=== PATIENT | female | born 1950 | race Asian ===

== ENCOUNTER 2018-03-30 07:22 | Outpatient (CLI) | payer MEDICARE, BC, SELFPAY ==
[2018-03-30 09:05] LABS: Anion Gap 7.5 mmol/L (3-11); BUN 13 mg/dL (7-18); CO2 30.5 mmol/L (21.0-32.0); CREATININE 0.47 mg/dL (0.55-1.02); Calcium 8.5 mg/dL (8.5-10.1); Chloride 104 mmol/L (98-107); Cholesterol 199 mg/dL (50-200); Glucose 124 mg/dL (70-100); HDL Cholesterol 66 mg/dL (40-60); LDL CHOLESTEROL 112 mg/dL (<100); Potassium 4.1 mmol/L (3.5-5.1); Sodium 142 mmol/L (136-145); Triglyceride 202 mg/dL (30-150)
== END 2018-03-30 07:42 ==
PROVIDERS: PCP Internal Medicine; Visit Provider Internal Medicine
DX: I10 Essential (primary) hypertension (principal)
CPT/HCPCS: 36415; 80048; 80061; 83721

== ENCOUNTER 2018-04-10 01:25 | Outpatient (CLI) | payer MEDICARE, BC, SELFPAY ==
--- NOTE | 2018-04-10 10:41 | DI.MAMMO_ITS ---
SYMPTOM/DIAGNOSIS: SCREENING, Z12.31 MAMMOGRAMS: Mammograms were interpreted according to the usual protocol including computer analysis with CAD system, tomosynthesis and C view imaging. The breasts are heterogeneously dense. No dominant mass or clumped microcalcification is identified in either breast. The current examination is compared with previous examinations including 03/2017 and there has been no gross interval change in appearance in comparison with the previous studies. CONCLUSION: No specific evidence of malignancy at this time. Routine screening examinations are suggested at yearly intervals in this age group according to the ACS/ACR guidelines. Category 1. Breast density, category C. MQSA ASSESSMENT OF FINDINGS: Negative. Category 1. Patient will receive a letter notifying them of these results. Bi-RADS category C. The breasts are heterogeneously dense, which may obscure small masses.
== END 2018-04-10 01:45 ==
PROVIDERS: PCP Internal Medicine; Visit Provider Internal Medicine
DX: Z12.31 Encounter for screening mammogram for malignant neoplasm of breast (principal)
CPT/HCPCS: 77063; 77067

== ENCOUNTER 2018-09-18 01:59 | Outpatient (CLI) | payer MEDICARE, BC, SELFPAY ==
[2018-09-18 09:23] LABS: Cholesterol 189 mg/dL (50-200); Glucose 128 mg/dL (70-100); HDL Cholesterol 69 mg/dL (40-60); LDL CHOLESTEROL 104 mg/dL (<100); Triglyceride 92 mg/dL (30-150)
== END 2018-09-18 02:19 ==
PROVIDERS: PCP Internal Medicine; Visit Provider Internal Medicine
DX: E78.00 Pure hypercholesterolemia, unspecified (principal); R73.03 Prediabetes
CPT/HCPCS: 36415; 80061; 82947; 83721

== ENCOUNTER 2019-04-05 08:03 | Outpatient (CLI) | payer MEDICARE, BC, SELFPAY ==
[2019-04-05 09:54] LABS: Anion Gap 8.8 mmol/L (3-11); BUN 15 mg/dL (7-18); CO2 31.2 mmol/L (21.0-32.0); CREATININE 0.54 mg/dL (0.55-1.02); Calcium 9.3 mg/dL (8.5-10.1); Calculated LDL 112 mg/dL; Chloride 104 mmol/L (98-107); Cholesterol 201 mg/dL (50-200); Glucose 132 mg/dL (70-100); HDL Cholesterol 67 mg/dL (40-60); Potassium 3.9 mmol/L (3.5-5.1); Sodium 144 mmol/L (136-145); Triglyceride 111 mg/dL (30-150)
== END 2019-04-05 08:23 ==
PROVIDERS: PCP Internal Medicine; Visit Provider Internal Medicine
DX: I10 Essential (primary) hypertension (principal); E78.00 Pure hypercholesterolemia, unspecified
CPT/HCPCS: 36415; 80048; 80061

== ENCOUNTER 2020-06-14 00:59 | Outpatient (CLI) | payer MEDICARE, BC, SELFPAY ==
--- NOTE | 2020-06-14 08:00 | DI.MAMMO_ITS ---
EXAM: MG MAMMO SCREENING CLINICAL HISTORY: screening,z12.39 TECHNIQUE: Bilateral full field digital CC and MLO mammographic images were obtained with 3D tomosyn thesis and utilizing computer aided detection (CAD). COMPARISON: Available for comparison. FINDINGS: Masses/Architectural Distortion: None seen. Microcalcifications: No suspicious pleomorphic-type are seen. Skin Thickening/Nipple Retraction: None. IMPRESSION: 1. No significant interval change with no specific features of malignancy noted. 2. Unless there is more urgent need, screening mammography is recommended, as per [employer] guidelines. BI-RADS Category 1 - Negative Breast Density - Category C - Heterogeneously dense Breast density category C or D implies that the patient has dense breast tissue. Dense breast tissue is very common and is not abnormal but dense breast tissue can make it harder to find cancer on a ma mmogram. Also, dense breast tissue may increase their breast cancer risk. This information about the result of the mammogram report was provided to the patient to raise their awareness. Use this report when you speak with the patient about their risks for breast cancer, which includes their family hist ory. At that time, you may recommend for more screening tests (Ultrasound or MRI) as they might be us eful based on their risk. A negative radiographic report should not delay biopsy if a dominant or clinically suspicious mass is present. Up to ten percent of cancers are not identified on mammography. A negative report may reinforce clinical impression. Adenosis and dense breasts may obscure an underlying neoplasm. False positive reports average 6 to 10%. Patient will receive a letter notifying them of these results.
== END 2020-06-14 01:19 ==
PROVIDERS: PCP Internal Medicine; Visit Provider Internal Medicine
DX: Z12.31 Encounter for screening mammogram for malignant neoplasm of breast (principal)
CPT/HCPCS: 77063; 77067

== ENCOUNTER 2020-09-28 01:50 | Outpatient (CLI) | payer MEDICARE, BC, SELFPAY ==
[2020-09-29 16:16] LABS: COVID-19 RT-PCR UVMMC Result Negative (Negative)
== END 2020-09-28 01:51 | disposition home or self-care (01) ==
LOC: LBO 01:50
PROVIDERS: PCP Internal Medicine; Visit Provider Internal Medicine
DX: Z20.822 Contact with and (suspected) exposure to COVID-19 (principal)
CPT/HCPCS: U0003; U0005

== ENCOUNTER 2020-11-09 03:12 | Outpatient (CLI) | payer MEDICARE, BC, SELFPAY ==
[2020-11-09 15:56] LABS: COMMENT (LAB VIEW ONLY) 81.82 mg/dL; Microalb ug/mg Crea 88.2 ug/mg Cr
[2020-11-09 16:41] LABS: Anion Gap 10.3 mmol/L (3-11); BUN 15 mg/dL (7-18); CO2 29.7 mmol/L (21.0-32.0); CREATININE 0.6 mg/dL (0.55-1.02); Calcium 9.6 mg/dL (8.5-10.1); Calculated LDL 80 mg/dL (<100); Chloride 102 mmol/L (98-107); Cholesterol 201 mg/dL (<200); Glucose 167 mg/dL (74-106); HDL Cholesterol 68 mg/dL (40-60); Potassium 3.5 mmol/L (3.5-5.1); Sodium 142 mmol/L (136-145); Triglyceride 266 mg/dL (<150)
== END 2020-11-09 03:13 | disposition home or self-care (01) ==
PROVIDERS: PCP Internal Medicine; Visit Provider Internal Medicine
DX: I10 Essential (primary) hypertension (principal); E78.00 Pure hypercholesterolemia, unspecified; E11.9 Type 2 diabetes mellitus without complications
CPT/HCPCS: 36415; 80048; 80061; 82043; 82570

== ENCOUNTER 2022-06-18 01:25 | Outpatient (CLI) | payer BC, MEDICARE, SELFPAY ==
--- NOTE | 2022-06-18 07:45 | DI.MAMMO_ITS ---
Exam(s) MAMMO SCREENING EXAM: MAMMO SCREENING CLINICAL HISTORY: screening,z12.39. TECHNIQUE: Bilateral full field digital CC and MLO mammographic images were obtained with 3D tomosyn thesis and utilizing computer aided detection (CAD). COMPARISON: Prior mammograms were reviewed. FINDINGS: The fibroglandular tissue pattern is again noted be moderately dense, this somewhat decreasing the se nsitivity mammogram for finding hidden underlying lesions. There are multiple bilateral CAD markings. In the right breast on the CC view there is an asymmetric density-possible nodule located medial of c enter, approximately 5 cm in from the nipple and measuring approximately 7 x 5 millimeters. Spot com pression view and ultrasound of this finding recommended. There are multiple benign-appearing micro and macro calcifications in both breasts but there are no n ew malignant-appearing microcalcification groups evident. There is no significant architectural distortion nor skin thickening-retraction. IMPRESSION: Dense bilateral fibroglandular tissue. Asymmetric density-possible nodule in the medial right breast . Spot compression view and ultrasound recommended. BI-RADS Category 0 - Assessment Incomplete: Need additional imaging evaluation Breast Density - Category C - Heterogeneously dense Breast density Category C or D implies that the patient has dense breast tissue. Dense breast tissue can make it harder to find cancer on a mammogram. Dense breast tissue is also associated with an incr eased risk of breast cancer. This information about the result of the mammogram report was provided to the patient to raise their awareness. Use this report when you speak with the patient about their risks for breast cancer, which includes their family history. At that time, you may recommend additional screening tests (Ultrasoun d or MRI) as these tests may add significant information. A negative radiographic report should not delay biopsy if a dominant or clinically suspicious mass is present. Up to ten percent of cancers are not identified on mammography. A negative report may reinforce clinical impression. Adenosis and dense breasts may obscure an underlying neoplasm. False positive reports average 6 to 10%. Patient will receive a letter notifying them of these results.
== END 2022-06-18 01:45 ==
PROVIDERS: PCP Internal Medicine; Visit Provider Internal Medicine
DX: Z12.31 Encounter for screening mammogram for malignant neoplasm of breast (principal); R92.8 Other abnormal and inconclusive findings on diagnostic imaging of breast
CPT/HCPCS: 77063; 77067

== ENCOUNTER 2022-06-27 01:03 | Outpatient (CLI) | payer BC, MEDICARE, SELFPAY ==
--- NOTE | 2022-06-27 | DI.MAMMO_ITS ---
Exam(s) MG MAMMO SCREEN CALL BACK UNI US BREAST RT COMPLETE EXAM: MAMMO SCREEN CALL BACK UNI --RIGHT AND COMPLETE RIGHT BREAST ULTRASOUND CLINICAL HISTORY: F/U MAMMO, R92.8, ASYMMETRIC DENSITY, ? NODULE MEDIAL OF CENTER. TECHNIQUE: Unilateral RIGHT BREAST spot mammographic image obtained with 3D tomosynthesisand lexisizi ng computer aided detection (CAD). . Complete RIGHT breast Ultrasound was also performed, including all 4 quadrants, the retroareolar archana on, and the ipsilateral axilla. COMPARISON: Prior mammograms were reviewed. This additional imaging was performed due to findings described on the recent screening mammogram of 06/18/2022. FINDINGS: DIAGNOSTIC RIGHT BREAST MAMMOGRAM: Additional mammographic views performed todayrender this area less concerning. Proceeded with ultrasound. COMPLETE RIGHT BREAST ULTRASOUND: Ultrasound performed today reveals no evidence of solid or significant cystic lesions in all 4 quadra nts. Also no focal ultrasound findings in retroareolar region.. Scanning of the ipsilateral axilla reveals no significant adenopathy. IMPRESSION: 1. No radiographic evidence of malignancy in the right breast. 2. Negative complete right breast ultrasound Appropriate follow-up is to keep this patient on a yearly mammogram schedule, with earlier imaging i f a self detected breast change is noted.. The patient was informed of these findings and recommendations prior to leaving the department today. BI-RADS Category 2 - Benign Findings Breast Density - Category C - Heterogeneously dense Breast density Category C or D implies that the patient has dense breast tissue. Dense breast tissue can make it harder to find cancer on a mammogram. Dense breast tissue is also associated with an incr eased risk of breast cancer. This information about the result of the mammogram report was provided to the patient to raise their awareness. Use this report when you speak with the patient about their risks for breast cancer, which includes their family history. At that time, you may recommend additional screening tests (Ultrasoun d or MRI) as these tests may add significant information. A negative radiographic report should not delay biopsy if a dominant or clinically suspicious mass is present. Up to ten percent of cancers are not identified on mammography. A negative report may reinforce clinical impression. Adenosis and dense breasts may obscure an underlying neoplasm. False positive reports average 6 to 10%. Patient will receive a letter notifying them of these results.
== END 2022-06-27 01:23 ==
PROVIDERS: PCP Internal Medicine; Visit Provider Internal Medicine
DX: R92.8 Other abnormal and inconclusive findings on diagnostic imaging of breast (principal); Z12.31 Encounter for screening mammogram for malignant neoplasm of breast
CPT/HCPCS: 76642; 77063; 77067

== ENCOUNTER 2022-11-12 02:43 | Outpatient (CLI) | payer BC, MEDICARE, SELFPAY ==
[2022-11-12 09:55] LABS: Anion Gap 7.4 mmol/L (3-11); BUN 10 mg/dL (7-18); CO2 31.6 mmol/L (21.0-32.0); CREATININE 0.5 mg/dL (0.55-1.02); Calcium 9.3 mg/dL (8.5-10.1); Calculated LDL 169 mg/dL (<100); Chloride 101 mmol/L (98-107); Cholesterol 302 mg/dL (<200); Estimated GFR 98.97 (mL/min/1.73m2); Glucose 133 mg/dL (74-106); HDL Cholesterol 65 mg/dL (40-60); Potassium 3.7 mmol/L (3.5-5.1); Sodium 140 mmol/L (136-145); Triglyceride 340 mg/dL (<150)
== END 2022-11-12 02:44 | disposition home or self-care (01) ==
LOC: LBO 02:45
PROVIDERS: Internal Medicine; PCP Student in an Organized Health Care Education/Training Program; Visit Provider Student in an Organized Health Care Education/Training Program
DX: I10 Essential (primary) hypertension (principal); E78.00 Pure hypercholesterolemia, unspecified
CPT/HCPCS: 36415; 80048; 80061

== ENCOUNTER 2022-11-27 18:00 | Emergency (ER) | payer BC, MEDICARE, SELFPAY ==
[2022-11-27 18:08] VITALS: BP 202/56; PULSE 82; RESP 16; TEMP 36.8; O2SAT 95
--- NOTE | 2022-11-27 18:15 | DI.RAD_ITS ---
Exam(s) XR PORTABLE CHEST AP EXAM: XR PORTABLE CHEST AP CLINICAL HISTORY: cough TECHNIQUE: 2D digital imaging was performed of the chest. One image was obtained. An AP view was ob tained. COMPARISON: CR CHEST ONE VIEW IN RAD DEPT from 11/21/2011 FINDINGS: MEDIASTINUM: Normal. HEART: Mild cardiomegaly. PULMONARY VASCULATURE: Normal. LUNGS: Clear. PLEURAL SPACE: No pleural effusion or pneumothorax. BONE:Within normal limits for the patient's age. OTHER FINDINGS:Normal. IMPRESSION: No acute pulmonary findings. DATA REPOSITORY: RADIATION DOSE DELIVERED:
--- NOTE | 2022-11-27 18:24 | W.ED.GENAD ---
Discharge Plan Disposition Patient Disposition: Home Condition: Stable Discharge Details Clinical Impression: Cough, Elevated LFTs Primary Care Provider: Karin Ohara ED Provider: Michael Aguilar Home Meds and New Rx's Prescriptions: New prednisone 20 mg tablet 60 mg PO DAILY 4 Days Qty: 12 0RF doxycycline hyclate 100 mg tablet 100 mg PO BID Qty: 14 0RF Continued mometasone [Nasonex] 50 mcg/actuation spray,non-aerosol 2 spray NS DAILY Qty: 1 2RF aspirin 81 mg tablet,delayed release (DR/EC) 81 mg PO DAILY propranolol 10 mg tablet 10 mg PO TID PRN PRN (Reason: anxiety) Qty: 30 0RF Hold Instructions: not tried Rx Instructions: take as needed for stress Centrum Silver 400-250 mcg tablet,chewable 1 tab PO DAILY docusate sodium [Cabrales' Liqui-Gels] 100 mg capsule 100 mg PO DAILY Patient Comments: Pt states she takes caplets, almost every night.HE ropinirole 0.25 mg tablet 0.25 mg PO QHS Qty: 30 1RF Rx Instructions: administer 1-3 hours before bedtime magnesium oxide 400 mg magnesium tablet 400 mg PO QHS Qty: 90 3RF Rx Instructions: Trial supplement for mm, sleep.. docusate sodium [Colace] 100 MG capsule 100 mg PO DAILY loratadine 10 MG tablet 10 mg PO DAILY Qty: 30 ascorbic acid (vitamin C) [Vitamin C] 500 MG tablet 500 mg PO DAILY atorvastatin 80 mg tablet 80 mg PO DAILY Qty: 90 3RF Hold Instructions: trial rosuvastatin 08/2022 hydrochlorothiazide 12.5 mg capsule 12.5 mg PO DAILY Qty: 90 3RF Hold Instructions: Home Medication placed on hold at Doctor's office rosuvastatin 10 mg tablet 10 mg PO DAILY Qty: 90 3RF Hold Instructions: wt gain and mm aches 10/2022 metoprolol succinate 100 mg tablet extended release 24 hr 100 mg PO BID Qty: 180 3RF Rx Instructions: to lower blood pressure amlodipine 5 mg tablet 5 mg PO DAILY Qty: 90 3RF Discharge Instructions Instructions: Acute Cough (ED) Additional Instructions: Your xray did not show concerning findings, your blood work showed a mild elevation in your liver function tests otherwise no concerning findings follow up with your primary care provider within 1-2 weeks especially if symptoms continue if you feel more ill,l have worsening shortness of breath or severe pain return to the emergency department Stand Alone Forms: Work Release Medical Decision Making 72 yo female who has a hx of htn, dm, chronic smoker, who comes in with cc of cough since Last Friday. She states she feels like she has phlegm but can't get it up. She denies fevers or chills, states when she is coughing she feels shortness of breath. Denies chest pain or pressure. She arrives stable though hypertensive, she does state her bp is high when she is in a medical facility. She has diffuse wheezing in all lung resendez, no murmurs, no jvd, no calf tenderness. She is speaking in full sentences. Given her smoking history and lung exam findings suspect she has undiagnosed copd, will proceed with duoneb and prednisone, fluvid, xray, cbc and cmp and reassess. No evidence of dvt on exam and no pleuritic chest pain and lung exam findings are consistent with copd and doubt pe and she has no chest pain and symptoms of cough are more consistent with infectious etiology so doubt acs. labs show mild elevation in lfts and she denies abdominal pain and has no tenderness on exam so do not feel acute imaging indicated of liver/gallbladder, will send hepatitis panel, xray without acute findings. She feels better, lung auscultation improved, mild apical wheezing bilaterally now. Suspect she has undiagnosed copd, will treat with prednisone and doxy and provide inhaler. She is stable for d/c and return precautions given Differential Diagnosis Differential Diagnosis: pneumonia, covid, copd Medical Records Medical records reviewed: Yes I reviewed the patient's medical records. Imaging Data Radiologic Study: Attestation: I personally reviewed and interpreted this imaging study as follows: Imaging: X-Ray Radiologist's impression: PROCEDURE INFORMATION: Exam: XR Chest Exam date and time: 11/27/2022 6:45 PM Age: 72 years old Clinical indication: Cough TECHNIQUE: Imaging protocol: Radiologic exam of the chest. Views: 1 view. COMPARISON: No relevant prior studies available. FINDINGS: Lungs: Unremarkable. No consolidation. Pleural spaces: Unremarkable. No pleural effusion. No pneumothorax. Heart/Mediastinum: Cardiac silhouette is mildly enlarged. Bones/joints: Significant degenerative disc changes noted throughout the thoracic spine. Bones are otherwise unremarkable. IMPRESSION: Mild cardiomegaly and chronic osseous changes. No active infiltrate Lab Data Lab results reviewed: Yes I reviewed the patient's lab results. HPI General Mode of arrival: ambulatory. Date/Time Provider Initiated Documentation: 11/27/22 18:02. Limitations to Documentation: no limitations. Information obtained by: patient. History of Present Illness 72 year old F presents to the emergency department with the chief complaint of cough, described as moderate, Patient started experiencing this day(s) (5) and it has been constant. No relieving factors improve symptom(s), No exacerbating factors reported . Patient notes denies chest pain and fever/chills. Patient did receive the following treatments prior to arrival, none Related Data Home Medications Medication Instructions Recorded Confirmed docusate sodium 100 mg capsule 100 mg PO DAILY 08/28/12 11/27/22 (Colace) loratadine 10 mg tablet 10 mg PO DAILY #30 tab-caps 01/19/13 11/27/22 ascorbic acid (vitamin C) 500 mg 500 mg PO DAILY 05/04/14 11/27/22 tablet (Vitamin C) mometasone 50 mcg/actuation nasal 2 spray NS DAILY #1 inh 04/13/19 11/27/22 spray (Nasonex) aspirin 81 mg tablet,delayed 81 mg PO DAILY 11/16/19 11/27/22 release atorvastatin 80 mg tablet 80 mg PO DAILY #90 tabs 11/15/21 11/27/22 hydrochlorothiazide 12.5 mg capsule 12.5 mg PO DAILY #90 tab-caps 11/15/21 11/27/22 propranolol 10 mg tablet 10 mg PO TID PRN PRN anxiety #30 12/18/21 11/27/22 tabs docusate sodium 100 mg capsule 100 mg PO DAILY 08/16/22 11/27/22 (Cabrales' Liqui-Gels) multivit with min-folic 1 tab PO DAILY 08/16/22 11/27/22 acid-lutein 400 mcg-250 mcg chewable tablet (Centrum Silver) ropinirole 0.25 mg tablet 0.25 mg PO QHS #30 tabs 08/16/22 11/27/22 magnesium oxide 400 mg PO QHS #90 tabs 08/27/22 11/27/22 rosuvastatin 10 mg tablet 10 mg PO DAILY #90 tabs 10/30/22 11/27/22 metoprolol succinate 100 mg 100 mg PO BID #180 tabs 11/23/22 11/27/22 tablet,extended release 24 hr amlodipine 5 mg tablet 5 mg PO DAILY #90 tabs 11/26/22 11/27/22 doxycycline hyclate 100 mg tablet 100 mg PO BID #14 tabs 11/27/22 prednisone 20 mg tablet 60 mg PO DAILY 4 days #12 tabs 11/27/22 Previous Rx's Medication Instructions Recorded mometasone 50 mcg/actuation nasal 2 spray NS DAILY #1 inh 04/13/19 spray (Nasonex) atorvastatin 80 mg tablet 80 mg PO DAILY #90 tabs 11/15/21 hydrochlorothiazide 12.5 mg capsule 12.5 mg PO DAILY #90 tab-caps 11/15/21 propranolol 10 mg tablet 10 mg PO TID PRN PRN anxiety #30 12/18/21 tabs ropinirole 0.25 mg tablet 0.25 mg PO QHS #30 tabs 08/16/22 magnesium oxide 400 mg PO QHS #90 tabs 08/27/22 rosuvastatin 10 mg tablet 10 mg PO DAILY #90 tabs 10/30/22 metoprolol succinate 100 mg 100 mg PO BID #180 tabs 11/23/22 tablet,extended release 24 hr amlodipine 5 mg tablet 5 mg PO DAILY #90 tabs 11/26/22 doxycycline hyclate 100 mg tablet 100 mg PO BID #14 tabs 11/27/22 prednisone 20 mg tablet 60 mg PO DAILY 4 days #12 tabs 11/27/22 Allergies Allergy/AdvReac Type Severity Reaction Status Date / Time Fish Containing Products Allergy Severe Hives Verified 08/27/22 10:43 shellfish derived Allergy Severe Hives Verified 08/27/22 10:43 acetaminophen [From Tylenol] Allergy Intermediate Rash Verified 08/27/22 10:43 ibuprofen [From Advil] Allergy Intermediate Rash Verified 08/27/22 10:43 latex Allergy Intermediate Rash Verified 08/27/22 10:43 Penicillins Allergy Unknown rash Verified 08/27/22 10:43 lisinopril AdvReac Mild cough Verified 08/27/22 10:43 aspirin AdvReac Unknown RASH FROM Verified 08/27/22 10:43 325 MG, 81 MG OK detergent Allergy Severe Skin Rash Uncoded 08/27/22 10:43 fabric softeners Allergy Severe Skin Rash Uncoded 08/27/22 10:43 enviromental Allergy Intermediate Skin Rash, Uncoded 08/27/22 10:43 watery eyes, runny nose glue from [employer] AdvReac Rash Uncoded 08/27/22 10:43 General Stated Complaint: GenMedical ANDREY: 3 Review of Systems All systems reviewed & are unremarkable except as noted in HPI and below Constitutional Constitutional: Denies chills and Denies fever(s) Cardiovascular Cardiovascular: Denies chest pain and Reports dyspnea Respiratory Respiratory: Reports cough and Reports dyspnea Gastrointestinal Gastrointestinal: Denies abdominal pain, Denies nausea and Denies vomiting Musculoskeletal Musculoskeletal: Denies joint swelling PFSH All Active Problems Cough (Acute) Elevated LFTs (Acute) Dermatitis (Acute) Skin tags, multiple acquired (Acute) Leg cramping (Acute) Foot pain (Acute) Bunion (Acute) Stress due to illness of family member (Chronic) Anxiety (Chronic) Type 2 diabetes mellitus without complication (Acute) Pure hypercholesterolemia (Acute 12/09/12) Osteopenia (Acute 05/24/14) FEMORAL NECK T score -2.4, total T score -1.4 Essential hypertension (Chronic 01/19/13) Cigarette smoker one half pack a day or less (Acute 09/06/15) Medical History (Updated 11/27/22 @ 19:41 by Michael Aguilar MD) Hypercholesterolemia Hypertension Osteopenia Prediabetes Seasonal allergies Uterine leiomyoma (05/10/14) Surgical History Abdominal hysterectomy Oophrectomy, Both 07/2014 Family History Mother Essential hypertension Brother Essential hypertension Heart disease Myocardial infarction Diabetes Sister Essential hypertension Heart disease Myocardial infarction Diabetes Sister Diabetes Social History (Updated 08/27/22 @ 10:44 by Keren Dowell RN) Smoking/Tobacco Use Status: Current every day Quit status: considering quitting Smoking risk assessment performed?: Yes (Pt states she smokes a couple a day Pack per week, and only when alone.) Alcohol Intake: current Alcohol Intake frequency: holidays/special occasions only Alcohol type: wine Drug use: Never Household members: spouse Number of Children: 0 Communication Needs: Corrective Lenses current occupation: works at [employer] and [employer] Pets and animals: Yes Current gender identity: female What is your relationship status?: Panel score (0-1 are the most socially isolated patients): 1 What type of physical activity do you participate in: other Details: active with Jobs Seatbelt use: always 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 Do you feel safe at home: Yes Do you feel safe in your relationship?: Yes Exam Const General: no acute distress Orientation: alert HENMT Head: normal to inspection Ears: external ears normal General nose exam: external nose normal Mouth: moist mucous membranes Eyes General: appearance normal, both eyes and all related structures Neck Neck: normal visual inspection Resp Effort & Inspection: normal respiratory effort, able to speak in complete sentences, audible wheezes and cough Cardio Rate: regular rate Heart Sounds: no murmurs Skin General skin exam: no rashes or lesions noted Neuro General: patient alert and patient oriented x3 Extrem General: normal to inspection Psych Mental Status: mental status grossly normal Course Vital Signs Vital signs: Vital Signs Temperature 36.8 C 11/27/22 18:08 Pulse 82 11/27/22 18:08 Respiratory Rate 16 11/27/22 18:08 Blood Pressure 202/56 H 11/27/22 18:08 Pulse Oximetry 95 11/27/22 18:08 Temperature 36.8 C 11/27/22 18:08 Temperature Source Temporal Artery Scan 11/27/22 18:08 Pulse 82 11/27/22 18:08 Respiratory Rate 16 11/27/22 18:08 Blood Pressure 202/56 H 11/27/22 18:08 Blood Pressure Position Sitting 11/27/22 18:08 Pulse Oximetry 95 11/27/22 18:08 Oxygen Delivery Method Room Air 11/27/22 18:08 Oxygen Flow Rate 0 11/27/22 18:08 Pain Level 0 11/27/22 18:08
[2022-11-27] MEDS: Albuterol/Ipratropium 3 ML UPD VIAL UPD (18:42)
[2022-11-27] MEDS: predniSONE 20 MG TAB 60 MG PO (18:42)
[2022-11-27 18:43] VITALS: RESP 18
[2022-11-27 18:47] LABS: Abs Immature Grans 0.03 10^3/uL (0.0-0.06); Absolute Basophil Count 0.04 10^3/uL (0.0-0.2); Absolute Eosinophil Count 0.12 10^3/uL (0.0-0.7); Absolute Lymphocyte Count 1.76 10^3/uL (1.2-3.4); Absolute Monocyte Count 0.42 10^3/uL (0.1-0.8); Absolute Neutrophil Count 4.54 10^3/uL (1.2-6.7); Basophils % 0.6; Eosinophils % 1.7; HCT 43.1 % (36.0-46.0); HGB 14.9 g/dL (11.2-15.7); Immature Grans % 0.4; Lymphocytes % 25.5; MCHC 34.6 % (32.0-36.0); MCV 93 fL (80-95); MPV 10.4 fL (8.0-11.0); Monocytes % 6.1; Neutrophils % 65.7; Platelet Count 263 10^3/uL (130-400); RBC 4.65 10^6/uL (3.93-5.22); RDW 10.9 % (11.7-14.6); RDW-SD 36.7 fL; WBC 6.91 10^3/uL (4.4-10.8)
[2022-11-27 18:55] VITALS: BP 165/51
--- NOTE | 2022-11-27 19:04 | DI.VRAD_ITS ---
PROCEDURE INFORMATION: Exam: XR Chest Exam date and time: 11/27/2022 6:45 PM Age: 72 years old Clinical indication: Cough TECHNIQUE: Imaging protocol: Radiologic exam of the chest. Views: 1 view. COMPARISON: No relevant prior studies available. FINDINGS: Lungs: Unremarkable. No consolidation. Pleural spaces: Unremarkable. No pleural effusion. No pneumothorax. Heart/Mediastinum: Cardiac silhouette is mildly enlarged. Bones/joints: Significant degenerative disc changes noted throughout the thoracic spine. Bones are otherwise unremarkable. IMPRESSION: Mild cardiomegaly and chronic osseous changes. No active infiltrate Dictated and Authenticated by: Celso Loya MD. Ordering:TR Rodriguez MD
[2022-11-27 19:05] LABS: ALT 104 U/L (14-59); AST 69 U/L (15-37); Albumin 3.6 g/dL (3.4-5.0); Alkaline Phosphatase 161 U/L (46-116); Anion Gap 7.7 mmol/L (3-11); BUN 18 mg/dL (7-18); Bilirubin, Total 0.8 mg/dL (0.2-1.0); CO2 26.3 mmol/L (21.0-32.0); CREATININE 0.8 mg/dL (0.55-1.02); Calcium 9.6 mg/dL (8.5-10.1); Chloride 100 mmol/L (98-107); Estimated GFR 77.75 (mL/min/1.73m2); Glucose 262 mg/dL (74-106); Potassium 3.4 mmol/L (3.5-5.1); Sodium 134 mmol/L (136-145); Total Protein 8.6 g/dL (6.4-8.2)
[2022-11-27 19:20] LABS: Procalcitonin < 0.1 ng/mL
[2022-11-27 19:22] LABS: COVID-19 PCR Negative (Negative); Influenza A PCR Negative (Negative); Influenza B PCR Negative (Negative); RSV PCR Negative (Negative)
[2022-11-27 19:23] LABS: Source Nasopharynx
[2022-11-27] MEDS: Albuterol HFA 8 GM 60 PUFF INH IH (19:54)
[2022-11-27] MEDS: Doxycycline Hyclate 100 MG CAP PO (19:54)
[2022-11-27] MEDS: Inhaler, Assist Device 1 EACH MC (19:55)
[2022-11-29 12:30] LABS: Hepatitis A Antibody IgM Positive (Negative); Hepatitis B Core Antibody Positive (Negative); Hepatitis B surface Ag Negative (Negative); Hepatitis C Ab w Rflx HCV PCR Negative (Negative)
[2022-12-02 12:54] LABS: HBc IgM Ab, S Negative (Negative)
== END 2022-11-27 19:56 | disposition home or self-care (01) ==
PROVIDERS: Emergency Provider Emergency Medicine; PCP Student in an Organized Health Care Education/Training Program
DX: R05.9 Cough, unspecified (principal); R79.89 Other specified abnormal findings of blood chemistry; E11.9 Type 2 diabetes mellitus without complications; I10 Essential (primary) hypertension; F17.210 Nicotine dependence, cigarettes, uncomplicated
CPT/HCPCS: 80053; 84145; 86704; 86709; 86803; 87340; 87637; 94640; 99283; 71045; 83735; 85025; 86705; 99284; J7512; J7620

== ENCOUNTER 2023-01-01 02:41 | Outpatient (CLI) | payer BC, MEDICARE, SELFPAY ==
[2023-01-01 08:15] LABS: HGB 14.1 g/dL (11.2-15.7)
[2023-01-01 08:43] LABS: ALT 68 U/L (14-59); AST 39 U/L (15-37); Albumin 3.9 g/dL (3.4-5.0); Alkaline Phosphatase 173 U/L (46-116); Anion Gap 9.7 mmol/L (3-11); BUN 10 mg/dL (7-18); Bilirubin, Direct 0.2 mg/dL (0.0-0.2); Bilirubin, Total 0.9 mg/dL (0.2-1.0); CO2 28.3 mmol/L (21.0-32.0); CREATININE 0.7 mg/dL (0.55-1.02); Chloride 102 mmol/L (98-107); Estimated GFR 91.26 (mL/min/1.73m2); Glucose 155 mg/dL (74-106); Magnesium 2.2 mg/dL (1.8-2.4); Potassium 3.2 mmol/L (3.5-5.1); Sodium 140 mmol/L (136-145); Total Protein 7.9 g/dL (6.4-8.2)
[2023-01-01 08:58] LABS: Calculated LDL 86 mg/dL (<100); Cholesterol 187 mg/dL (<200); HDL Cholesterol 73 mg/dL (40-60); Triglyceride 142 mg/dL (<150)
[2023-01-01 09:38] LABS: Iron 95 ug/dL (50-170); Total Iron Binding Capacity 265 ug/dL (250-450); Transferrin Sat 36 % (15-50)
[2023-01-03 08:51] LABS: ALT 60 U/L (7-45); ActiTest Grade A1-A2; ActiTest Interpretation minimal activity; ActiTest Score 0.38; Alpha-2-Macroglobulin 178 mg/dL (100 - 280); Apoliprotein A1 188 mg/dL (>=140); Bilirubin, Total 0.8 mg/dL (<=1.2); FibroTest Interpretation minimal fibrosis; FibroTest Score 0.37; FibroTest Stage F1-F2; GGT 71 U/L (5 - 36); Haptoglobin 75 mg/dL (30 - 200)
[2023-01-06 17:16] LABS: Apolipoprotein B, Serum 79 mg/dL (48-124); Beta VLDL Cholesterol Not Detected mg/dL (<15); Beta VLDL Triglycerides Not Detected mg/dL (<15); Cholesterol, Total, CDC 183 mg/dL; Chylomicron Cholesterol Not Detected; Chylomicron Triglycerides Not Detected; HDL Cholesterol, CDC 63 mg/dL (>=50); LDL Cholesterol 90 mg/dL; LDL Triglycerides 39 mg/dL (<=50); Lp(a) Cholesterol 18 mg/dL (<5); LpX Not detected; Triglycerides, CDC 157 mg/dL; VLDL Cholesterol 12 mg/dL (<30); VLDL Triglycerides 93 mg/dL (<120)
== END 2023-01-01 02:42 | disposition home or self-care (01) ==
LOC: LBO 02:41
PROVIDERS: PCP Student in an Organized Health Care Education/Training Program; Visit Provider Student in an Organized Health Care Education/Training Program
DX: E11.9 Type 2 diabetes mellitus without complications (principal); E78.00 Pure hypercholesterolemia, unspecified; I10 Essential (primary) hypertension; R25.2 Cramp and spasm; R79.89 Other specified abnormal findings of blood chemistry; E78.5 Hyperlipidemia, unspecified; Z83.79 Family history of other diseases of the digestive system
CPT/HCPCS: 36415; 80048; 80061; 80076; 81596; 82172; 82664; 83540; 83550; 83735; 85018

== ENCOUNTER → 2023-12-11 00:04 | Outpatient (CLI) | payer BC, MEDICARE, SELFPAY ==
--- NOTE | 2023-12-11 07:30 | DI.DEXA_ITS ---
Exam(s) XR DEXA BONE DENSITY W/WO HELIO EXAM: XR DEXA BONE DENSITY W/WO HELIO CLINICAL HISTORY: re-evaluate bone density,, asymptomatic menopausal state Z78.0 osteopenia TECHNIQUE: COMPARISON: DX DEXA BONE DENSITY WITH HELIO from 05/23/2014 FINDINGS: Lateral Spine Image: Unremarkable. No compression deformities identified. Left hip: Total T-Score: -1.2. This compares to -0.9 on the prior examination. Total Z-Score: 0.6 T- and Z-scores: Findings are consistent with osteopenia. There is osteoporosis in the femoral neck with a T-score of -2.6. This compares to -2.4 on the prior examination. Lumbar Spine: Total T-Score: -1.1 Total Z-Score: 1.3 T- and Z-scores: Findings are consistent with osteopenia. No evidence of osteoporosis. Left forearm: Total T-score:-1.9. This compares to -1.4 on the prior examination. Total Z-score: 0.5. T and Z-score is: Findings are consistent with osteopenia. There is osteoporosis seen in the proxima l forearm with a total T-score of -2.5. This compares to -1.9 on the prior examination. IMPRESSION: Osteoporosis seen in the left femoral neck and the proximal left forearm as described above.
== END ==
PROVIDERS: PCP Student in an Organized Health Care Education/Training Program; Visit Provider Student in an Organized Health Care Education/Training Program
DX: Z78.0 Asymptomatic menopausal state; Z13.820 Encounter for screening for osteoporosis; M81.0 Age-related osteoporosis without current pathological fracture
CPT/HCPCS: 77080

== ENCOUNTER 2023-12-19 12:15 | Outpatient (REF) | payer BC, MEDICARE, SELFPAY | END 2023-12-19 12:16 | disposition home or self-care (01) | LOC: LBN 12:15 | PROVIDERS: PCP Student in an Organized Health Care Education/Training Program; Visit Provider Student in an Organized Health Care Education/Training Program | DX: R35.0 Frequency of micturition (principal); R30.0 Dysuria; R39.15 Urgency of urination | CPT/HCPCS: 87077; 87086; 87186 ==

== ENCOUNTER → 2023-12-31 00:30 | Outpatient (CLI) | payer BC, MEDICARE, SELFPAY ==
--- NOTE | 2023-12-31 07:15 | DI.RAD_ITS ---
Exam(s) XR LUMBAR SPINE COMP W FLEX/EX EXAM: XR LUMBAR SPINE COMP W FLEX/EX CLINICAL HISTORY: eval curv, stenosis, bony path,?L4-5 RADICULOPATHY,LUMBAR RADICULAR PAIN,M5. TECHNIQUE: 2D digital imaging was performed. Seven views. Additional flexion and extension lateral views were performed in addition to the routine views. COMPARISON: CR XR DEXA BONE DENSITY W/WO HELIO from 12/11/2023 FINDINGS: BONES: No fracture or destructive lesion. Vertebral body heights are maintained. Endplate osteophyte s throughout. Prominent facet hypertrophy identified, greatest at L4-5 and L5-S1. DISKS: Intervertebral disc spaces are maintained. ALIGNMENT: No scoliosis. Slight spondylolisthesis at L3-4, L4-5 and L5-S1. No significant change wi th flexion or extension. SOFT TISSUE: Aorta heavily calcified. IMPRESSION: Severe facet joint degenerative changes at L4-5 and L5-S1. Slight spondylo listhesis at these levels . DATA REPOSITORY: RADIATION DOSE DELIVERED:
--- NOTE | 2023-12-31 07:15 | DI.RAD_ITS ---
Exam(s) XR HIP RT COMPLETE AP PELVIS EXAM: XR HIP RT COMPLETE AP PELVIS CLINICAL HISTORY: eval bony pathology,RT HIP AND THIGH PAIN, M25.559,M79.659. TECHNIQUE: 2D digital imaging was performed. Two views COMPARISON: No exams were available for comparison FINDINGS: BONES: No acute fracture is present. No bony destructive lesion is seen. Enthesophytes are noted at the iliac wings and greater trochanters. JOINTS: No dislocation present. Hip joint spaces are maintained. There is acetabular spurring. SI joints are unremarkable. SOFT TISSUE: Normal. IMPRESSION: Acetabular spurring bilaterally. No joint space narrowing. DATA REPOSITORY: RADIATION DOSE DELIVERED:
== END ==
PROVIDERS: PCP Student in an Organized Health Care Education/Training Program; Visit Provider Student in an Organized Health Care Education/Training Program
DX: M25.559 Pain in unspecified hip (principal); M79.659 Pain in unspecified thigh; M62.89 Other specified disorders of muscle; M54.16 Radiculopathy, lumbar region
CPT/HCPCS: 72114; 73502

== ENCOUNTER 2024-04-09 15:11 | Outpatient (CLI) | payer OTHER, BC, MEDICARE, SELFPAY ==
--- NOTE | 2024-04-09 | DI.RAD_ITS ---
Exam(s) XR HUMERUS RT EXAM: XR HUMERUS RT CLINICAL HISTORY: PAIN RT UPPER ARM M79.621. TECHNIQUE: 2D digital imaging was performed of the right humerus. Two images were obtained. AP and lateral views were obtained. COMPARISON: No exams were available for comparison FINDINGS: BONES: No acute fracture is present. No bony destructive lesion is seen. There are degenerative garcía es seen at the acromioclavicular joint. SOFT TISSUE: Normal. IMPRESSION: No acute fracture or dislocation. DATA REPOSITORY: RADIATION DOSE DELIVERED:
== END 2024-04-09 15:31 ==
LOC: DI 15:11
PROVIDERS: PCP Student in an Organized Health Care Education/Training Program; Visit Provider Physician Assistant Medical
DX: M79.621 Pain in right upper arm (principal)
CPT/HCPCS: 73060

== ENCOUNTER 2025-03-18 03:57 | Outpatient (CLI) | payer BC, MEDICARE, SELFPAY ==
[2025-03-18 15:58] LABS: Abs Immature Grans 0.01 10^3/uL (0.0-0.06); HCT 38.6 % (36.0-46.0); HGB 13.2 g/dL (11.2-15.7); Immature Grans % 0.2 %; MCH 33.2 pg (27.0-33.0); MCHC 34.2 % (32.0-36.0); MCV 97 fL (80-95); MPV 11.0 fL (8.0-11.0); Platelet Count 173 10^3/uL (130-400); RBC 3.98 10^6/uL (3.93-5.22); RDW 11.4 % (11.7-14.6); RDW-SD 40.5 fL; WBC 5.80 10^3/uL (4.4-10.8)
[2025-03-18 16:37] LABS: ALT 86 U/L (14-59); AST 65 U/L (15-37); Albumin 3.8 g/dL (3.4-5.0); Alkaline Phosphatase 145 U/L (46-116); Anion Gap 7.3 mmol/L (3-11); BUN 13 mg/dL (7-18); Bilirubin, Total 0.7 mg/dL (0.2-1.0); CO2 29.7 mmol/L (21.0-32.0); Calcium 9.0 mg/dL (8.5-10.1); Calculated LDL 75 mg/dL (<100); Chloride 102 mmol/L (98-107); Cholesterol 175 mg/dL (<200); Estimated GFR 92.97 (mL/min/1.73m2); Glucose 171 mg/dL (74-106); HDL Cholesterol 69 mg/dL (>or=50); Potassium 3.8 mmol/L (3.5-5.1); Sodium 139 mmol/L (136-145); Total Protein 7.8 g/dL (6.4-8.2); Triglyceride 155 mg/dL (<150)
== END 2025-03-18 03:58 | disposition home or self-care (01) ==
LOC: LBO 03:57
PROVIDERS: Absent Provider Nurse Practitioner; PCP Nurse Practitioner; Referring Provider Nurse Practitioner; Visit Provider Nurse Practitioner
DX: I10 Essential (primary) hypertension (principal); E11.9 Type 2 diabetes mellitus without complications; E78.00 Pure hypercholesterolemia, unspecified
CPT/HCPCS: 36415; 80053; 80061; 85025